=== PATIENT | male | born 1975 | race Caucasian/White ===

== ENCOUNTER 2021-06-05 14:31 | Emergency (ER) | payer MEDICARE ==
[2021-06-05 15:32] LABS: HEMOGLOBIN 18.9 gm/dl (14.0-17.5); RED BLOOD COUNT 6.1 M/UL (4.20-5.50); WHITE BLOOD COUNT 11.5 K/UL (4.5-11.0)
[2021-06-05 16:06] LABS: BUN/CREATININE RATIO 21 (0-10)
[2021-06-05] MEDS ORDERED: NAPROSYN500 MG PO (17:12)
== END 2021-06-05 17:45 | disposition home or self-care (01) ==
LOC: ER1 14:31
PROVIDERS: Emergency Medicine
DX: M25.511 Pain in right shoulder (principal); D45 Polycythemia vera
CPT/HCPCS: 71045; 73030; 80053; 81001; 82550; 82553; 82668; 83735; 83874; 84484; 85025; 85610; 85730; 93005; 99284; J7030